=== PATIENT | male | born 1990 | race Caucasian/White ===

== ENCOUNTER 2018-09-22 13:34 | Day surgery (SDC) | payer BC, OTHER ==
[2018-09-22] VITALS (16 sets, daily range): BP systolic 110–136; BP diastolic 46–80; PULSE 71–88; RESP 12–23; Ht 165.1 cm; Wt 92.7 kg
[~2018-09-22] VITALS: Ht 165.1 cm; Wt 92.7 kg
--- NOTE | 2018-09-22 11:22 | HPN ---
Date/Time of Note Date/Time of Note DATE: 09/22/18 TIME: 11:22 Interval H&P Admission Note Pt. seen H&P reviewed: No system changes CHACHO GOMEZ MD September 22, 2018 11:22
[2018-09-22] MEDS ORDERED: LACTATED RINGER'S 1,000 ML IV SCH (14:43)
[2018-09-22] MEDS ORDERED: ROPIVACAINE 0.5 % 30 ML VIAL ONE ×2 (15:12→17:32)
[2018-09-22] MEDS ORDERED: LIDOCAINE 1% (MPF) 30 ML INJ ONE (15:12)
[2018-09-22] MEDS ORDERED: NEOMYC/POLYMYX/BACIT 30 GM OINT ONE (15:12)
--- NOTE | 2018-09-22 15:12 | PREAC ---
Date/Time of Note Date/Time of Note DATE: 09/22/18 TIME: 15:11 Anesthesia Eval and Record Evaluation Time Pre-Procedure Interview DATE: 09/22/18 TIME: 15:11 Age 28 Sex male NPO: 8 hrs Preoperative diagnosis RIGHT KNEE BUCKET HANDLE MEDIAL MENISCUS TEAR Planned procedure RIGHT KNEE MEDIAL MENISCUS REPAIR Past Medical History Past Medical History: Includes GI: Obesity Surgery & Anesthesia Issues No known issue Meds Anticoagulation: No Beta Power within 24 hr: No Reason Beta Power not given: Pt. not on B-Power Current Medications Lactated Ringer's 1,000 ml @ 25 mls/hr Q24H IV ; Start 09/22/18 at 14:43 Meds reviewed: Yes Allergies Coded Allergies: No Known Allergy (Unverified , 09/22/18) Allergies Reviewed: Yes Labs/Studies Labs Reviewed: Reviewed by anesthesiologist test: N/A Pre-procedure Exam Last vitals Vital Signs Date Temp Pulse Resp B/P (MAP) Pulse Ox O2 O2 Flow FiO2 Time Delivery Rate 09/22/18 98.2 71 16 123/79 97 Room Air 14:22 (94) Airway: Adequate mouth opening, Adequate thyromental dist Mallampati: Mallampati II Teeth: Normal Lung: Normal Heart: Normal ASA Physical Status ASA physical status: 2 Emergency: None Planned Anesthetic General/MAC: ETT Planned Pain Management Parenteral pain med Pre-operative Attestations Prior to commencing anesthesia and surgery, the patient was re-evaluated, there was verification of: *The patient's identity *The results of appropriate recent lab work and preoperative vital signs *The above evaluation not changing prior to induction *Anesthetic plan, risk benefits, alternative and complications discussed with patient/family; questions answered; patient/family understands, accepts and wishes to proceed. Benedict Jim M.D. September 22, 2018 15:12
[2018-09-22] MEDS ORDERED: DIPHENHYDRAMINE 50 MG INJ IV PRN (15:30)
[2018-09-22] MEDS ORDERED: FENTAnyl 50 MCG/ML VIAL IV PRN ×3 (15:30)
[2018-09-22] MEDS ORDERED: hydrALAzine 20 MG INJ IV PRN (15:30)
[2018-09-22] MEDS ORDERED: OXYCODONE/ACETAMINOPHEN (5/325) TAB PO PRN ×2 (15:30)
[2018-09-22] MEDS ORDERED: IPRATROPIUM (NEB) 0.5 MG/2.5 ML AMP HHN PRN (15:30)
[2018-09-22] MEDS ORDERED: ALBUTEROL 0.083% (NEB) 2.5 MG/3 ML AMP HHN PRN (15:30)
[2018-09-22] MEDS ORDERED: TRIMETHOBENZAMIDE 100 MG/ML VIAL IM PRN (15:30)
[2018-09-22] MEDS ORDERED: HYDROmorphONE 1 MG/5 ML IV SYRINGE IV PRN ×3 (15:30)
[2018-09-22] MEDS ORDERED: MEPERIDINE 25 MG INJ IV PRN (15:30)
[2018-09-22] MEDS ORDERED: MIDAZOLAM 1 MG/ML 2 ML INJ IV PRN (15:30)
[2018-09-22] MEDS ORDERED: EPHEDrine 25 MG/5 ML SYG IV PRN (15:30)
[2018-09-22] MEDS ORDERED: ONDANSETRON 4 MG INJ IV PRN (15:30)
[2018-09-22] MEDS ORDERED: LABETALOL HCL 20MG INJ IV PRN (15:30)
[2018-09-22] MEDS ORDERED: PROPOFOL 20 ML ONE (16:39)
[2018-09-22] MEDS ORDERED: CEFAZOLIN 1 GM INJ ONE (16:39)
[2018-09-22] MEDS ORDERED: ROCURONIUM 50 MG INJ ONE (16:39)
[2018-09-22] MEDS ORDERED: NEOSTIGMINE 3 MG/3 ML SYRINGE ONE (16:39)
[2018-09-22] MEDS ORDERED: GLYCOPYRROLATE 0.4 MG INJ ONE (16:39)
[2018-09-22] MEDS ORDERED: MIDAZOLAM 1 MG/ML 2 ML INJ ONE (16:41)
[2018-09-22] MEDS ORDERED: ONDANSETRON 4 MG INJ ONE (16:41)
[2018-09-22] MEDS ORDERED: DEXAMETHASONE 4 MG/ML 5 ML INJ ONE (16:41)
[2018-09-22] MEDS ORDERED: FENTAnyl 50 MCG/ML VIAL ONE ×3 (16:41→18:15)
[2018-09-22] MEDS ORDERED: KETOROLAC 30 MG INJ ONE (17:12)
[2018-09-22] MEDS ORDERED: SUGAMMADEX SODIUM 200 MG/2 ML VIAL IV ONE (18:01)
[2018-09-22] MEDS ORDERED: METOCLOPRAMIDE 10 MG INJ ONE (18:25)
--- NOTE | 2018-09-22 18:43 | PAC ---
Date/Time of Note Date/Time of Note DATE: 09/22/18 TIME: 18:43 Post-Anesthesia Notes Post-Anesthesia Note Last documented vital signs Vital Signs Date Temp Pulse Resp B/P (MAP) Pulse Ox O2 O2 Flow FiO2 Time Delivery Rate 09/22/18 98.2 71 16 123/79 97 Room Air 14:22 (94) Activity: WNL Respiratory function: WNL Cardiovascular function: WNL Mental status: Baseline Pain reasonably controlled: Yes Hydration appropriate: Yes Nausea/Vomiting absent: Yes Benedict Jim M.D. September 22, 2018 18:43
--- NOTE | 2018-09-22 20:39 | OPR ---
Date/Time of Note Date/Time of Note DATE: 09/22/18 TIME: 20:38 Operative Report Procedure Date: September 22, 2018 Preoperative Diagnosis Right knee bucket-handle medial meniscal tear Postoperative Diagnosis Right knee bucket-handle medial meniscal tear Operation/Procedure Performed Right knee arthroscopy with chondroplasty and repair of bucket-handle medial meniscal tear Surgeon Ruben Gomez MD Print Line Tailer none Anesthesia Type: general Anesthesiologist: Benedict Jim M.D. Tourniquet Time: 70 min Estimated Blood Loss: minimal Transfusion none Specimen none Grafts/Implants [employer] Fast T fix and [employer] NovoStitch Complications none Pt Condition Post Procedure: stable Disposition: PACU Indications INDICATIONS: Patient is a28 year-old male with locking and clicking in the knee and right knee pain. The patient has complained of having catching, clicking and locking symptoms over the medial aspect of the knee with no relief with anti-inflammatory. Patient has decided to proceed with surgery. RISK NOTE: Patient was explained the risks and benefits of the surgery in the patients elem language, including not limited to infection, bleeding, loss of limb, loss of life, need for future surgery, risk of anesthesia, risk of injury to the blood vessels and nerves, ligaments or tendons, and risk of deep vein thrombosis. Patient understood these risks and wished to proceed with the surgery. Procedure Description The correct operative site was noted and marked in the preoperative holding area. The patient was then brought back into the operative theater, placed supine on the operative table. Right knee was examined under anesthesia. Range of motion was 0-120. There is no varus or valgus or anterior or posterior instability. There is crepitus noticed at the patellofemoral joint. Tourniquet was then placed on the operative extremity thigh non-sterilely. Patient was then given preoperative antibiotics and then prepped and draped in normal sterile fashion. A timeout was taken and all parties in the room agreed it was the correct patient, correct extremity and correct procedure. Standard anterior lateral portal was created and the knee joint was entered with a blunt tipped trocar, followed by 30 arthroscope. Inflow was achieved with a pump and the pressure maintained at approximately 50 mmHg. A routine arthroscopic surgery was performed. Suprapatella pouch was unremarkable. 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 There were no loose bodies seen. There is an inflamed hypertrophic plica noted in the anterior and superior medial aspect of the knee. The popliteus hiatus was entered and was normal. Lateral compartment was entered and grade 1 chondromalacia was seen on the lateral tibial plateau and femoral condyle. Scope was then brought into the intercondylar notch and an anteromedial portal was made. Shaver was brought into the knee and small amount of fat pad and scar tissue was initially gently debrided. The anterior cruciate ligament was intact and probed. The knee was brought into a valgus position and the medial compartment was entered. The articular surface of the medial femoral condyle and medial tibial plateau revealed grade 1/2 chondromalacia. There was a bucket handle medial meniscal tear that was reduced with an obturator and then held with a 0 PDS and reduction. The meniscus was then fixed from the mid body to the posterior horn with a [employer] meniscal Nov oStitch and a [employer] fast T fix. It was then fixed with an inside out technique with Zone Specific repair suture . Sutures were then passed medially from inside out and tied to the capsule with care to avoid any injury to the surrounding neurovascular structures. This was then again performed in the anterior horn and with an outside in technique and then a final meniscal cinch was then placed for repair. A probe was introduced and this was carefully probed and was found to be stable. Chondroplasty was then carried out along the weightbearing aspect of the medial femoral condyle, medial tibial plateau, taking care to remove only loose articular cartilage debris and preserve functional articular cartilage. The lateral compartment was reentered and there is no meniscal tear found in the cartilage was well-maintained. The loose chondral debris was debrided with motorized shaver. Attention was then directed back to the patella femoral joint and a chondroplasty was carried out along the weightbearing aspect of the trochlea and undersurface of the patella to again remove loose debris and maintain functional active articular cartilage. The knee was then irrigated with additional 2 L of lactated Ringers solution. Excess fluid was then drained. Range of motion was then attempted showing 0- 125 degrees of motion The portal sites were closed with 4-0 Monocryl and Steri-Strips and dressed with Xeroform and triple antibiotic ointment. The knee was then injected with 20 cc of 0.5% plain ropivacaine. A sterile dressing was then applied, followed by a compressive bulky soft bandage and an ADAMS Wrap and TROM brace locked in full extension. At the completion of the surgery patient had palpable pulses, soft arms and brisk cap refill. The patient tolerated the procedure well and was taken to the PACU without any complications. All sponge and needle counts were correct. Patient will begin pain medicine and 48 hours of antibiotics as well as aspirin 81 mg for the duration of 4 weeks postoperatively Modifier 22 note: Given the significantly complex nature of this bucket-handle meniscal tear and the fact that it required a great deal of skill and time to reduce and repair this bucket-handle meniscus in a perfect fashion the case the case required an additional 45 minutes of surgical time in order to get an excellent reduction is very complex and challenging tear pattern. Given the complexity of this tear and the fact that he required more time into get a excellent reduction and repair the case should be awarded a modifier 22. RUBEN GOMEZ MD September 22, 2018 20:39
== END 2018-09-22 20:10 | disposition home or self-care (01) ==
LOC: SDS 13:34
PROVIDERS: ATTEND Orthopaedic Surgery
DX: S83.211A Bucket-handle tear of medial meniscus, current injury, right knee, initial encounter (principal); E66.9 Obesity, unspecified; X58.XXXA Exposure to other specified factors, initial encounter; Y93.89 Activity, other specified; Y92.89 Other specified places as the place of occurrence of the external cause; Y99.8 Other external cause status
CPT/HCPCS: 29881; J0690; J1100; J1170; J1885; J2175; J2250; J2405; J2710; J2765; J2795; J3010; Z7610; C1713